=== PATIENT | female | born 1935 | race Caucasian/White ===

== ENCOUNTER 2016-07-20 18:32 | Observation (INO) ==
--- NOTE | 2016-07-20 18:52 | Emergency Department Note ---
Disposition Clinical Impression: Atrial fibrillation with RVR Disposition: Admitted As Inpatient Condition: Good Referrals: Anil Garcia DO [Primary Care Provider] - Forms: ED Satisfaction Letter Time of Disposition: 22:28 Arrhythmia/Palpitations HPI - General Chief Complaint: ED Arrhythmia/Palpitations Stated Complaint: PALPITATIONS Time Seen by Provider: 07/20/16 18:45 Source: patient Mode of arrival: ambulatory Limitations: no limitations Nursing Notes Reviewed: Yes Vital Signs Reviewed: Yes - History of Present Illness HPI Narrative: 80-year-old white female who presents with palpitations/racing heart since 2 PM. She has a history of paroxysmal atrial fibrillation for several years. She usually waits. Time for it to stop. After waiting several hours she decided to come in. She took her metoprolol this morning. She frequently takes a second dose, but did not take one this afternoon. No chest pain. No shortness of breath. Pt Subjective Complaint: rapid heart beat Onset (ago): hour(s) (4 and half) Time: 14:00 Duration: constant Severity: similar to previous episodes Context: occurred during rest Arrhythmia History: atrial fibrillation Associated symptoms: Reports: denies other symptoms Treatments prior to arrival: beta-aayush - Related Data Home Medications Medication Instructions Recorded Confirmed Metoprolol [Lopressor] 12.5 mg PO QDPC PRN 07/20/16 07/20/16 Warfarin [Coumadin] 3 mg PO 1800 07/20/16 07/20/16 Allergies Allergy/AdvReac Type Severity Reaction Status Date / Time No Known Allergies Allergy Unverified 11/18/15 11:30 All systems ED: reviewed and negative except as stated. Constitutional: Denies: fever, chills Cardiovascular: Reports: palpitations. Denies: chest pain Respiratory: Denies: cough, dyspnea Gastrointestinal: Denies: abdominal pain, nausea, vomiting Musculoskeletal: Denies: back pain Past Medical History - Past Medical History Medical history: Reports: arthritis, atrial fibrillation Psychiatric history: Reports: no psych history - Social History Smoking Status: Never smoker Smokeless Tobacco Status: No Alcohol use: Reports: none Drug use: Reports: none Physical Exam - General Limitations: no limitations General appearance: alert, in no apparent distress - Head Head exam: atraumatic, normocephalic - Eye Eye exam: Present: PERRL, EOMI. Absent: scleral icterus, conjunctival injection - ENT ENT exam: normal oropharynx, mucous membranes moist, TM's normal bilaterally - Neck Neck exam: Present: normal inspection, full ROM, trachea midline. Absent: lymphadenopathy, thyromegaly - Chest Chest inspection: Present: normal inspection, symmetric chest wall rise - Respiratory Respiratory exam: Present: normal lung sounds bilaterally. Absent: respiratory distress - Cardiovascular Cardiovascular exam: Present: tachycardia, irregular rhythm. Absent: systolic murmur, diastolic murmur, gallop - Abdominal Exam Abdominal exam: Present: soft, Non-Tender - Extremities Exam Extremities exam: Present: normal inspection, full ROM, normal capillary refill. Absent: tenderness, pedal edema, calf tenderness - Neurological Exam Neurological exam: Present: alert, oriented X3, normal gait. Absent: motor sensory deficit - Psychiatric Psychiatric exam: Present: normal affect, normal mood - Skin Skin exam: Present: warm, dry, intact, normal color. Absent: cyanosis, diaphoresis Course - Reevaluation(s) Reevaluation #1: Heart rate is improved, down into the 120s. Her blood pressure is 98 systolic. I am going to give a dose of digoxin IV. Time: 19:33 Reevaluation #2: Heart rate just decreased to 5 deep. It appears regular. We will obtain a repeat 12-lead EKG. I have discontinued her Cardizem drip. Her blood pressure is 87 systolic. I am going to give her 500 mL saline bolus. Time: 21:00 Reevaluation #3: Heart rate of 60. Blood pressure is 108/49. I discussed observation admission. The patient is agreeable. I spoke with Dr. Ureña. He is accepted the patient for observation admission. Time: 22:27 Vital Signs Temperature 98.1 F 07/20/16 18:37 Pulse Rate 141 07/20/16 18:37 Respiratory Rate 20 07/20/16 18:37 Blood Pressure 119/82 07/20/16 18:37 O2 Sat by Pulse Oximetry 94 07/20/16 18:37 Temperature 98.8 F 07/20/16 22:39 Pulse Rate 53 07/20/16 22:39 Respiratory Rate 18 07/20/16 22:39 Blood Pressure 111/60 07/20/16 22:39 O2 Sat by Pulse Oximetry 92 07/20/16 22:39 Oxygen Delivery Oxygen Delivery Room Air Arrhythmia/Palpitations - Differential Diagnosis Differential Diagnosis: Likely: palpitations, anxiety, sinus tachycardia, artial arrhythmia, ventricular premature beats, supraventricular tachycardia, ventricular tachycardia, WPW, metabolic/electrolyte disturbance - Lab Data Lab results reviewed: Yes I reviewed the patient's lab results. Result diagrams: 07/20/16 18:35 07/20/16 18:35 Lab Results 07/20/16 07/20/16 07/20/16 Range/Units 18:35 18:35 18:35 WBC 14.7 H (4.3-11.1) K/mcL RBC 4.32 (3.82-4.97) M/mcL Hgb 14.2 (11.5-15.4) g/dL Hct 41.1 (35.3-44.9) % MCV 95.1 (83.0-100.0) fL MCH 32.9 (28.0-33.3) pg MCHC 34.5 (31.6-35.5) g/dL RDW 13.2 (11.5-14.5) % Plt Count 295 (140-400) K/mcL MPV 9.7 (9.4-12.4) fL Immature Gran % 0.5 (0-4) % Seg Neutrophils % 70.7 % Lymphocytes % 18.8 % Monocytes % 8.7 % Eosinophils % 1.0 % Basophils % 0.3 % Neutrophils # 10.4 H (1.6-8.9) K/mcL Lymphocytes # 2.8 (0.6-4.6) K/mcL Monocytes # 1.3 (0.0-1.3) K/mcL Eosinophils # 0.2 (0.0-0.6) K/mcL Basophils # 0.0 (0.0-0.2) K/mcL PT 12.7 H (9.4-12.1) Seconds INR 1.2 Sodium 136 (136-145) mEq/L Potassium 4.1 (3.5-4.5) mEq/L Chloride 100 (98-109) mEq/L Carbon Dioxide 25 (19-29) mEq/L BUN 12 (7-20) mg/dL Creatinine 0.77 (0.57-1.11) mg/dL Est GFR ( Amer) > 60 (> 60) Est GFR (Non-Af Amer) > 60 (> 60) BUN/Creatinine Ratio 16 (6-26) Glucose 114 H (70-99) mg/dL Calculated Osmolality 283 (280-300) Calcium 10.0 (8.6-10.8) mg/dL Troponin I (0-0.03) ng/mL 07/20/16 07/20/16 Range/Units 18:35 21:20 WBC (4.3-11.1) K/mcL RBC (3.82-4.97) M/mcL Hgb (11.5-15.4) g/dL Hct (35.3-44.9) % MCV (83.0-100.0) fL MCH (28.0-33.3) pg MCHC (31.6-35.5) g/dL RDW (11.5-14.5) % Plt Count (140-400) K/mcL MPV (9.4-12.4) fL Immature Gran % (0-4) % Seg Neutrophils % % Lymphocytes % % Monocytes % % Eosinophils % % Basophils % % Neutrophils # (1.6-8.9) K/mcL Lymphocytes # (0.6-4.6) K/mcL Monocytes # (0.0-1.3) K/mcL Eosinophils # (0.0-0.6) K/mcL Basophils # (0.0-0.2) K/mcL PT (9.4-12.1) Seconds INR Sodium (136-145) mEq/L Potassium (3.5-4.5) mEq/L Chloride (98-109) mEq/L Carbon Dioxide (19-29) mEq/L BUN (7-20) mg/dL Creatinine (0.57-1.11) mg/dL Est GFR ( Amer) (> 60) Est GFR (Non-Af Amer) (> 60) BUN/Creatinine Ratio (6-26) Glucose (70-99) mg/dL Calculated Osmolality (280-300) Calcium (8.6-10.8) mg/dL Troponin I 0.01 0.01 (0-0.03) ng/mL - Radiology Data Radiology results reviewed: Yes I reviewed the patient's radiology results. ITS Impressions Chest X-Ray 07/20/16 18:46 IMPRESSION: 1. No active pulmonary disease. D/ / Ricardo Quispe MD / Ricardo Quipse MD Interpreting Provider: Ricardo Quispe MD - EKG Data EKG attestation: Yes I reviewed and interpreted this EKG. EKG results narrative: Atrial fibrillation with RVR with a rate of 141, nonspecific ST-T changes. Rhythm strip shows atrial fibrillation with rate 141, QRS 89 ms with no other ectopy as interpreted by me. EKG #2: Sinus bradycardia, rate of 49, nonspecific ST-T changes. Rhythm strip shows sinus bradycardia with a rate of 49, MA interval 167 ms, QRS 76 ms with no other ectopy as interpreted by me. Critical Care Time Critical Care Time: Yes Total Critical Care Time: 30 Attestation: Critical care time includes my initial evaluation, multiple reassessments, consultation with the family at bedside, consultation with the hospitalist, review of laboratory, EKG. No procedures were performed.
[2016-07-20 18:54] LABS: Basophils % 0.3 %; Eosinophils # 0.2 K/mcL (0.0-0.6); Hematocrit 41.1 % (35.3-44.9); Hemoglobin 14.2 g/dL (11.5-15.4); Immature Granulocytes % 0.5 % (0-4); Lymphocytes # 2.8 K/mcL (0.6-4.6); Lymphocytes % 18.8 %; Mean Corpuscular HGB Conc 34.5 g/dL (31.6-35.5); Mean Corpuscular Hemoglobin 32.9 pg (28.0-33.3); Mean Corpuscular Volume 95.1 fL (83.0-100.0); Mean Platelet Volume 9.7 fL (9.4-12.4); Monocytes # 1.3 K/mcL (0.0-1.3); Monocytes % 8.7 %; Neutrophils # 10.4 K/mcL (1.6-8.9); Platelet Count 295 K/mcL (140-400); Red Blood Count 4.32 M/mcL (3.82-4.97); Red Cell Distribution Width 13.2 % (11.5-14.5); Segmented Neutrophils % 70.7 %
[2016-07-20 18:55] LABS: INR 1.2; Prothrombin Time 12.7 Seconds (9.4-12.1)
[2016-07-20 19:05] LABS: BUN/Creatinine Ratio 16 (6-26); Blood Urea Nitrogen 12 mg/dL (7-20); Carbon Dioxide 25 mEq/L (19-29); Chloride 100 mEq/L (98-109); Glucose 114 mg/dL (70-99); Osmolality,Calculated 283 (280-300); Potassium 4.1 mEq/L (3.5-4.5); Sodium 136 mEq/L (136-145); eGFR For African Americans > 60 (> 60); eGFR For Non-African Americans > 60 (> 60)
[2016-07-20] MEDS ORDERED: *HR* Digoxin 0.5 MG/2 ML AMPUL IVP ONE (19:32)
[2016-07-20] MEDS ORDERED: 0.9 % Sodium Chloride 500 ML ONE (20:59)
[2016-07-20] MEDS: 0.9 % Sodium Chloride 500 ML IVC ONE ×2 (21:03→21:43)
[2016-07-20] MEDS ORDERED: Naloxone 0.4 MG/ML INJ IVP PRN (23:39)
[2016-07-21] MEDS: 0.9 % Sodium Chloride 1,000 ML IVC SCH ×2 (00:33→08:47)
[2016-07-21] MEDS ORDERED: *HR* Enoxaparin 80 MG/0.8 ML SYRINGE SQ SCH (06:00)
[2016-07-21 06:54] VITALS: BP 96/45
--- NOTE | 2016-07-21 10:16 | Electrocardiograph Report ---
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
--- NOTE | 2016-07-21 10:19 | Electrocardiograph Report ---
[address] [address] Test Date: 2016-07-20 Pat Name: Leticia Sotelo Department: 9201 Room: 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
--- NOTE | 2016-07-21 10:44 | Internal Med History&Physical ---
Date of Encounter: 07/21/16 Time of Encounter: 10:05 Assessment and Plan (1) Atrial fibrillation with RVR Current visit: Yes Status: Acute She has converted back to normal sinus rhythm. Repeat cardiac enzymes were ordered by emergency room. Internal Medicine - H&P: HPI Chief complaint: Atrial fibrillation with RVR Admitted From: Home Plans for Post Hospital Care: Home History of present illness: Ms. Sotelo is a 80 year old female who came to the emergency room stating she had AF with RVR onset approximately 2 PM while doing usual leisure activity. When it did not resolve after a few hours she came to emergency room. Her ventricular rate was found be 141/m. She was given Cardizem initially but her rate did not slow sufficiently so she was given Lanoxin. Her rate then dropped to 40s. It was felt best to admit her to [facility] floor for overnight observation. She states she was diagnosed atrial fibrillation approximately 4 years ago. Is been paroxysmal in nature with episodes occurring 1-2 times per month and lasting a few minutes to a few hours. She uses metoprolol at a dose of 12.5 mg b.i.d. but states some days she cannot take it because her blood pressure is too low. She denies hypertension. A Regadenoson stress test done 11/18/[address] changes nondiagnostic for ischemia. Perfusion imaging was negative for ischemia or infarct. The LVEF was 66%. An echocardiogram done 10/31/2014 showed LVEF of 60% with mild LV diastolic dysfunction. There was [id number] AI, mild MR, and mild TR. Left atrial size was 3.5 cm. The left ventricular end diastolic diameter was 5.4 cm. E/A ratio was 0.8. She denies heart failure DVT pulmonary embolus or myocardial infarction. She states she feels back to her baseline now and wishes to be discharged home. Past Med Surg Social Fam HX - Past Medical History Medical history: arthritis, atrial fibrillation, hypertension Psychiatric history: no psych history - Social History Smoking Status: Never smoker Smokeless Tobacco Status: No Alcohol use: none Drug use: none Internal Medicine - H&P: Meds Metoprolol [Lopressor] 12.5 mg PO QDPC PRN 07/20/16 [History] Warfarin [Coumadin] 3 mg PO 1800 07/20/16 [History] Allergies No Known Allergies Allergy (Verified 05/10/17 01:37) All Systems PM: A 10-system review of systems was performed and is negative for pertinent findings except as documented above in the HPI. Review of systems: Gen.: She states her weight has been stable the past few months Cardiovascular: As per history of present illness Respiratory: She is a lifelong nonsmoker and has no known chronic lung disease GI: She denies disorders of her liver gallbladder or exocrine pancreas : She denies hematuria dysuria or kidney stones Neurologic: She denies large distribution strokes or seizures Endocrine: She denies diabetes thyroid disease or hyperlipidemia Hematology/oncology: She denies blood disorders cancers or anemia Psychiatric: She denies anxiety depression or other mental health issues [place] skeletal: She denies arthritis gout or other bone joint or muscle disorders. She had left hip replacement, bilateral foot fractures, and left leg fracture in the past. - Constitutional Vitals: Temp Pulse Resp BP Pulse Ox 98.2 F 52 16 96/45 95 07/21/16 06:53 07/21/16 06:53 07/21/16 06:53 07/21/16 06:53 07/21/16 09:05 Exam: Gen.: She is well-developed well-nourished female who appears in no acute distress at present time HEENT: Head is atraumatic and normal cephalic. Eyes: EOMI. There is no scleral icterus. Mouth: Mucosa is moist. Neck: Supple and nontender. There is no thyromegaly or adenopathy noted. Heart: Regular without murmurs gallops or ectopics. Lungs: No wheezes or crackles are heard. Abdomen: Soft and nontender. No masses or guarding noted. Exam is limited because she is in the seated position. Extremities: There is no cyanosis edema or clubbing noted. Dorsalis pedis and posterior tibial pulses are trace palpable bilaterally. Her feet are warm to touch. Neurologic: Mental status: She is talkative and a good historian. Cranial nerves: Smile is symmetric. Forehead wrinkles bilaterally. Tongue protrudes midline. EOMI. Motor: There is no pronator drift. Cerebellar: Finger to nose is intact bilaterally. Skin: Warm and dry Internal Med - H&P Results - Labs CBC & Chem 7: 07/20/16 18:35 07/20/16 18:35 Labs: Cardiac Enzymes 07/21/16 Range/Units 05:50 Troponin I 0.02 (0-0.03) ng/mL
--- NOTE | 2016-07-21 10:53 | Discharge Summary ---
Date of Encounter: 07/21/16 Time of Encounter: 10:05 - Discharge Diagnosis (1) Atrial fibrillation with RVR Priority: Primary Status: Acute - Discharge Medications Prescriptions: Metoprolol XL (24 HR) Succ [Toprol XL] 12.5 mg PO DAILY #15 tab.er.24h Home Medications: Warfarin [Coumadin] 3 mg PO 1800 07/20/16 [History] Metoprolol XL (24 HR) Succ [Toprol XL] 12.5 mg PO DAILY #15 tab.er.24h 07/21/16 [Rx] Allergies/Adverse Reactions: Allergies No Known Allergies Allergy (Verified 07/21/16 01:37) Date of admission: 07/20/16 22:51 Primary care physician: Anil Garcia DO Consults: 07/21/16 01:19 Consult to [employer] Car [employer] [CONS] Routine Reason for SW Consult: eval. for home needs; lives alone but is alert & oriented - Patient Status Disposition: Home, Self-Care Condition: Good Functional capacity at discharge: independent ambulation Overall status at discharge: patient is progressing back to baseline - Discharge Instructions Follow Up With: Anil Garcia DO [Primary Care Provider] - 1 week - Diet and Activity Activity: resume usual activities as tolerated Diet: advance to your usual diet Hospital course: Ms. Sotelo is a 80 year old female who came to the emergency room stating she had AF with RVR onset approximately 2 PM while doing usual leisure activity. When it did not resolve after a few hours she came to emergency room. Her ventricular rate was found be 141/m. She was given Cardizem initially but her rate did not slow sufficiently so she was given Lanoxin. Her rate then dropped to 40s. It was felt best to admit her to [facility] for overnight observation. Initial orders were written by the emergency room physician. I saw her morning of July 21 and performed a history physical and discharge. She remained in normal sinus rhythm after converting in the emergency room. Her heart rate returned to a satisfactory level. Repeat cardiac enzymes showed no evidence of myocardial damage. I discussed with her a trial of Toprol-XL 12.5 mg daily instead of prn Lopressor and she agreed to this. She felt stable for discharge home. She will follow with her PCP Dr. Garcia within 1 week. I will let Dr. Garcia and/or Dr. Bauman adjust Coumadin dose since her pro time is subtherapeutic. - Time Spent with Patient Total time spent providing and/or coordinating discharge services: - Constitutional Vitals: Temp Pulse Resp BP Pulse Ox 98.2 F 52 16 96/45 95 07/21/16 06:53 07/21/16 06:53 07/21/16 06:53 07/21/16 06:53 07/21/16 09:05
[2016-07-21] MEDS ORDERED: *HR* Warfarin 3 MG TABLET PO SCH (18:00)
== END 2016-07-21 12:55 | disposition home or self-care (01) ==
LOC: INPPIK 18:32 → EMEROOPIK 18:32 → INPPIK 23:13
PROVIDERS: ADMIT Internal Medicine; ATTEND Internal Medicine